=== PATIENT | female | born 1965 | race Two or more races ===

== ENCOUNTER 2020-02-02 22:06 | Emergency (ER) | payer MEDICAID ==
[~2020-02-02] VITALS: Ht 162.6 cm; Wt 60.0 kg
[~2020-02-02 22:06] MED LIST: LEVO75TA PO; PROP10TA10 PO
[2020-02-02 22:16] VITALS: BP 138/78
[2020-02-02] MEDS ORDERED: DICYCLOMINE 10 MG/5 ML ORAL SYR PO ONE (23:00)
[2020-02-02] MEDS ORDERED: MAGNESIUM/ALUMINUM HYDROXIDE/SIMETHICONE 30ML UDC PO ONE (23:00)
[2020-02-02 23:22] LABS: BASOPHILS % 0.9 % (0.0-2.0); EOSINOPHILS % 2.6 % (0.0-5.0); HEMATOCRIT. 41.7 % (36.0-48.0); HEMOGLOBIN. 13.8 g/dL (12.0-16.0); LYMPHOCYTES % 20.5 % (20.0-50.0); MEAN CORPUSCULAR HEMOGLOBIN 29.1 pg (28.0-32.0); MEAN PLATELET VOLUME 7.3 fl (7.4-10.4); MONOCYTES % 7.5 % (2.0-8.0); NEUTROPHILS % 68.5 % (40.0-76.0); PLATELET 292 x1000/uL (130-400); RED BLOOD CELL COUNT 4.74 mill/uL (4.2-5.4); RED CELL DISTRIBUTION WIDTH 16.7 % (11.6-14.6)
[2020-02-02 23:26] LABS: CHLORIDE 107 mEq/L (98-107)
== END 2020-02-03 08:15 | disposition left against medical advice (07) ==
LOC: ER 22:06
DX: Z53.21 Procedure and treatment not carried out due to patient leaving prior to being seen by health care provider (principal); I49.9 Cardiac arrhythmia, unspecified
CPT/HCPCS: 36415; 80053; 83880; 84484; 85025; 93005